=== PATIENT | male | born 1975 | race African-American/Black ===

== ENCOUNTER 2025-03-27 08:50 | Emergency (ER) | payer OTHER ==
[2025-03-27] MEDS ORDERED: cefTRIAXone (ROCEPHIN) 2 GM VIAL ONE (09:18)
[2025-03-27 09:29] LABS: #Basophils 0.1 thou/uL (0.0-0.2); #Eosinophils 0.1 thou/uL (0.0-0.7); #Lymphocytes 1.6 thou/uL (1.20-3.40); #Monocytes 0.3 thou/uL (0.11-0.59); #Neutrophils 2.8 thou/uL (1.40-6.50); %Basophils 1.6 % (0.0-1.0); %Eosinophils 1.6 % (0.0-10.0); %Lymphocytes 31.8 % (21.0-51.0); %Monocytes 7.0 % (0.0-10.0); %Neutrophils 58.1 % (42.0-75.0); Hematocrit 45.2 % (42.0-52.0); Hemoglobin 15.1 g/dL (14.0-18.0); Mean Corpuscular Hemoglobin 30.7 pg (27.0-31.0); Mean Corpuscular Volume 91.8 fl (78.0-98.0); Platelet Count 249 10x3/uL (130-400); Red Blood Cell (RBC) Count 4.93 mill/uL (4.70-6.10); White Blood Cell (WBC) Count 4.9 10x3/uL (4.8-10.8)
[2025-03-27] MEDS ORDERED: Lidocaine 1% PF 5 ML VIAL ONE (09:31)
[2025-03-27 09:40] LABS: INR-International Normal Ratio 1.0; Prothrombin Time 13.2 sec (12.0-14.7)
[2025-03-27 09:41] LABS: PTT 35.1 sec (22.9-36.1)
[2025-03-27 09:43] LABS: ALT (SGPT) 25 U/L (Less than 45); AST (SGOT) 29 U/L (11-34); Albumin 4.6 g/dL (3.1-4.5); Alkaline Phosphatase 52 U/L (40-110); Anion Gap 13 mmol/L (10-20); BUN (Urea Nitrogen) 10 mg/dL (8.9-20.6); Bilirubin, Total 0.6 mg/dL (0.3-1.2); Calc. Creatinine Clearance 0 mL/min (70-130); Calcium 10.0 mg/dL (7.8-10.44); Carbon Dioxide 27 mmol/L (22-29); Chloride 105 mmol/L (98-107); Globulin 3.4 g/dL (2.4-3.5); Glucose 99 mg/dL (70-105); Potassium 4.5 mmol/L (3.5-5.1); Sodium 140 mmol/L (136-145)
== END 2025-03-27 10:48 | disposition home or self-care (01) ==
LOC: BURERS 08:50
DX: S62.625B Displaced fracture of middle phalanx of left ring finger, initial encounter for open fracture (principal); S60.455A Superficial foreign body of left ring finger, initial encounter; F17.210 Nicotine dependence, cigarettes, uncomplicated; W31.0XXA Contact with mining and earth-drilling machinery, initial encounter
CPT/HCPCS: 80053; 85025; 85610; 85730; 96365; J0696